=== PATIENT | female | born 1950 | race Caucasian/White ===

== ENCOUNTER 2016-10-12 17:18 | Observation (INO) ==
--- NOTE | 2016-10-12 18:16 | Emergency Department Note ---
Disposition Clinical Impression: Chest pain Qualifiers: Chest pain type: unspecified Qualified Code(s): R07.9 - Chest pain, unspecified Disposition: Admitted As Inpatient Condition: Fair Time of Disposition: 21:00 General Adult HPI - General Chief complaint: ED Chest Pain Stated complaint: Chest Pressure Time Seen by Provider: 10/12/16 18:07 Source: patient, family Limitations: no limitations - History of Present Illness Pain Scale: 3 - Related Data Home Medications Medication Instructions Recorded Confirmed Aspirin Enteric Coated [Aspirin EC] 81 mg PO DAILY 10/12/16 10/12/16 Cholecalciferol (Vitamin D3) 2,000 unit PO DAILY 10/12/16 10/12/16 [Vitamin D] Cranberry 500 mg PO DAILY 10/12/16 10/12/16 Cyanocobalamin (Vitamin B-12) 1,000 mcg PO DAILY 10/12/16 10/12/16 [Vitamin B12] Docusate [Colace] 100 mg PO DAILY PRN 10/12/16 10/12/16 GlipiZIDE [Glipizide Xl] 5 mg PO DAILY 10/12/16 10/12/16 Krill/Om3/Dha/Epa/Om6/Lip/Astx 2 each PO DAILY 10/12/16 10/12/16 [Krill Oil 1,500 mg Softgel] Lisinopril [Zestril] 5 mg PO DAILY 10/12/16 10/12/16 Loratadine [Claritin] 10 mg PO DAILY 10/12/16 10/12/16 Metformin [Glucophage] 500 mg PO BIDWM 10/12/16 10/12/16 Oxaprozin [Daypro] 600 mg PO BID 10/12/16 10/12/16 Psyllium Husk [Metamucil] 0.52 gm PO BID 10/12/16 10/12/16 Triamterene/HCTZ 37.5/25mg 1 each PO DAILY 10/12/16 10/12/16 [Dyazide] Vitamin E (Dl,Tocopheryl Acet) 400 unit PO DAILY 10/12/16 10/12/16 [Vitamin E] Allergies Allergy/AdvReac Type Severity Reaction Status Date / Time Penicillins [PCN] Allergy Swelling Verified 10/12/16 17:28 of Lip/Tongue/Throat Sulfa (Sulfonamide Allergy Rash Verified 10/12/16 17:28 Antibiotics) Past Medical History - Past Medical History Medical history: Reports: diabetes, hypertension Psychiatric history: Reports: no psych history - Social History Smoking Status: Never smoker Smokeless Tobacco Status: No Alcohol use: Reports: none Drug use: Reports: none Physical Exam - General Limitations: no limitations General appearance: alert, in no apparent distress Course Course Narrative: Patient signed out to me at 7 PM. Chest pain intermittent over the last 2 weeks. Patient has never had any stress testing or heart catheterization. Patient feeling intermittent episodes of heart racing and chest pressure as well. Recently changed from atenolol to lisinopril. Apparently an echocardiogram had been done about Keri a few weeks back which showed mitral valve prolapse. We will admit for chest pain, rule out ACS. I think the patient will benefit from some cardiac monitoring to see if she is intermittently going into tachyarrhythmia. I spoke with hospitalist Dr. Gongora who has accepted patient for admission. Vital Signs Temperature 98.7 F 10/12/16 17:21 Pulse Rate 54 10/12/16 17:21 Respiratory Rate 18 10/12/16 17:21 Blood Pressure 161/78 10/12/16 17:21 O2 Sat by Pulse Oximetry 96 10/12/16 17:21 Temperature 98.7 F 10/12/16 17:21 Pulse Rate 46 10/12/16 19:39 Respiratory Rate 16 10/12/16 19:39 Blood Pressure 131/76 10/12/16 19:39 O2 Sat by Pulse Oximetry 99 10/12/16 19:39 Oxygen Delivery Oxygen Delivery Room Air Medical Decision Making - Lab Data Result diagrams: 10/12/16 18:26 10/12/16 18:26 Lab Results 10/12/16 10/12/16 10/12/16 Range/Units 18:26 18:26 18:26 WBC 5.9 (4.3-11.1) K/mcL RBC 4.63 (3.82-4.97) M/mcL Hgb 13.5 (11.5-15.4) g/dL Hct 40.8 (35.3-44.9) % MCV 88.1 (83.0-100.0) fL MCH 29.2 (28.0-33.3) pg MCHC 33.1 (31.6-35.5) g/dL RDW 14.0 (11.5-14.5) % Plt Count 271 (140-400) K/mcL MPV 11.2 (9.4-12.4) fL Immature Gran % 0.3 (0-4) % Seg Neutrophils % 39.9 % Lymphocytes % 38.7 % Monocytes % 14.3 % Eosinophils % 5.6 % Basophils % 1.2 % Neutrophils # 2.3 (1.6-8.9) K/mcL Lymphocytes # 2.3 (0.6-4.6) K/mcL Monocytes # 0.8 (0.0-1.3) K/mcL Eosinophils # 0.3 (0.0-0.6) K/mcL Basophils # 0.1 (0.0-0.2) K/mcL PT 11.7 (9.4-12.1) Seconds INR 1.1 APTT 24.5 L (26.0-36.0) Seconds Sodium 137 (136-145) mEq/L Potassium 4.2 (3.5-4.5) mEq/L Chloride 106 (98-109) mEq/L Carbon Dioxide 19 (19-29) mEq/L BUN 29 H (7-20) mg/dL Creatinine 1.01 (0.57-1.11) mg/dL Est GFR ( Amer) > 60 (> 60) Est GFR (Non-Af Amer) 55 L (> 60) BUN/Creatinine Ratio 29 H (6-26) Glucose 96 (70-99) mg/dL Calculated Osmolality 290 (280-300) Calcium 9.7 (8.6-10.8) mg/dL Magnesium 1.7 (1.6-2.6) mg/dL Troponin I (0-0.03) ng/mL TSH 2.000 (0.350-4.840) mcIU/mL 10/12/16 Range/Units 18:26 WBC (4.3-11.1) K/mcL RBC (3.82-4.97) M/mcL Hgb (11.5-15.4) g/dL Hct (35.3-44.9) % MCV (83.0-100.0) fL MCH (28.0-33.3) pg MCHC (31.6-35.5) g/dL RDW (11.5-14.5) % Plt Count (140-400) K/mcL MPV (9.4-12.4) fL Immature Gran % (0-4) % Seg Neutrophils % % Lymphocytes % % Monocytes % % Eosinophils % % Basophils % % Neutrophils # (1.6-8.9) K/mcL Lymphocytes # (0.6-4.6) K/mcL Monocytes # (0.0-1.3) K/mcL Eosinophils # (0.0-0.6) K/mcL Basophils # (0.0-0.2) K/mcL PT (9.4-12.1) Seconds INR APTT (26.0-36.0) Seconds Sodium (136-145) mEq/L Potassium (3.5-4.5) mEq/L Chloride (98-109) mEq/L Carbon Dioxide (19-29) mEq/L BUN (7-20) mg/dL Creatinine (0.57-1.11) mg/dL Est GFR ( Amer) (> 60) Est GFR (Non-Af Amer) (> 60) BUN/Creatinine Ratio (6-26) Glucose (70-99) mg/dL Calculated Osmolality (280-300) Calcium (8.6-10.8) mg/dL Magnesium (1.6-2.6) mg/dL Troponin I 0.01 (0-0.03) ng/mL TSH (0.350-4.840) mcIU/mL Attestation Statement - Attestation Attestation: I examined this patient and my medical decision-making was reviewed with the RENEWABLE ENERGY PROJECT MANAGER/PA/Advanced Practice Nurse/Resident Physician. I agree with the documented findings, disposition and treatment plan as described except to the extent set forth below. [id number] time provided Patient presents with chest pain. She is pain-free at the time of my exam. She appears in no acute distress. No known previous history of coronary artery disease I, Robe Dowd MD, personally performed a history and physical exam of the patient and discussed their management with the resident. I reviewed the resident's note and agree with the documented findings, medical decision making , and plan of care. This patient was signed out at shift change from Dr. Landry. Please refer to his note for complete details of the history and physical examination. At shift change the patient is awaiting test results before consult the hospitalist for admission. Patient has had some intermittent chest discomfort over the past 2 weeks associated with fatigue and weakness. No chest pain at present. On examination patient is a well-developed well-nourished well-appearing elderly female in no acute distress. She is alert and oriented 3. There is no cyanosis or diaphoresis. Chest is nontender to palpation. Breath sounds are clear and equal bilaterally. Heart regular rate and rhythm. Abdomen soft and nontender with normal bowel sounds. No pedal edema. The hospitalist, Dr. Gongora, was consulted and accepted admission of the patient.
--- NOTE | 2016-10-12 18:20 | Emergency Department Note ---
Disposition Clinical Impression: Chest pain Disposition: Admitted As Inpatient Condition: Good Chest Pain HPI - General Chief Complaint: ED Chest Pain Stated Complaint: Chest Pressure Time Seen by Provider: 10/12/16 18:07 Source: patient, family Mode of arrival: ambulatory Limitations: no limitations Vital Signs Reviewed: Yes Nursing Notes Reviewed: Yes - History of Present Illness HPI Narrative: Patient presents with intermittent chest discomfort over the past several weeks. She was previously admitted to [facility] overnight for observation and subsequently discharged. She has also seen her primary care physician yesterday who changed her antihypertensive medications (atenolol to lisinopril). Pt complaint: chest pain Onset (ago): week(s) Duration: intermittent Onset: during rest Pain Location: substernal Severity: moderate Severity scale (1-10): 3 Quality: other (pressure) Improves with: nothing Worsens with: nothing Associated symptoms: Reports: palpitations, other (Weakness and fatigue) Treatments prior to arrival chest pain: aspirin - Related Data On Oral Contraceptives: No Home Medications Medication Instructions Recorded Confirmed Aspirin Enteric Coated [Aspirin EC] 81 mg PO DAILY 10/12/16 10/12/16 Cholecalciferol (Vitamin D3) 2,000 unit PO DAILY 10/12/16 10/12/16 [Vitamin D3] Cranberry 500 mg PO DAILY 10/12/16 10/12/16 Cyanocobalamin (Vitamin B-12) 1,000 mcg PO DAILY 10/12/16 10/12/16 [Vitamin B12] Docusate [Colace] 100 mg PO DAILY PRN 10/12/16 10/12/16 GlipiZIDE [Glipizide Xl] 5 mg PO DAILY 10/12/16 10/12/16 Krill/Om3/Dha/Epa/Om6/Lip/Astx 2 each PO DAILY 10/12/16 10/12/16 [Krill Oil 1,500 mg Softgel] Loratadine [Claritin] 10 mg PO DAILY 10/12/16 10/12/16 Metformin [Glucophage] 500 mg PO BIDWM 10/12/16 10/12/16 Oxaprozin [Daypro] 600 mg PO BID 10/12/16 10/12/16 Psyllium Husk [Metamucil] 0.52 gm PO BID 10/12/16 10/12/16 Triamterene/HCTZ 37.5/25mg 1 each PO DAILY 10/12/16 10/12/16 [Dyazide] Vitamin E (Dl,Tocopheryl Acet) 400 unit PO DAILY 10/12/16 10/12/16 [Vitamin E] Previous Rx's Medication Instructions Recorded Enalapril Maleate [Vasotec] 2.5 mg PO DAILY #30 tablet 10/13/16 Lisinopril [Zestril] 10 mg PO DAILY #30 tablet 10/13/16 Allergies Allergy/AdvReac Type Severity Reaction Status Date / Time Penicillins [PCN] Allergy Swelling Verified 10/12/16 17:28 of Lip/Tongue/Throat Sulfa (Sulfonamide Allergy Rash Verified 10/12/16 17:28 Antibiotics) All systems ED: reviewed and negative except as stated. Constitutional: Reports: weakness Eyes: Reports: as per HPI ENT ED: Reports: as per HPI Cardiovascular: Reports: chest pain, palpitations Respiratory: Reports: as per HPI Gastrointestinal: Reports: as per HPI Genitourinary: Reports: as per HPI Musculoskeletal: Reports: as per HPI Integumentary: Reports: as per HPI Neurological: Reports: as per HPI Psychiatric: Reports: as per HPI Endocrine: Reports: as per HPI Hematological/Lymphatic: Reports: as per HPI Allergic/Immunologic: Reports: as per HPI Chest Pain PMH - Past Medical History Medical history: Reports: diabetes, hypertension, other Surgical history: Reports: hysterectomy Psychiatric history: Reports: no psych history - Social History Smoking Status: Never smoker Alcohol use: Reports: none Drug use: Reports: none Physical Exam - General Limitations: no limitations General appearance: alert, in no apparent distress - Head Head exam: atraumatic - Eye Eye exam: Present: normal appearance - ENT ENT exam: normal exam - Neck Neck exam: Present: normal inspection - Chest Chest inspection: Present: normal inspection, symmetric chest wall rise - Respiratory Respiratory exam: Present: normal lung sounds bilaterally - Cardiovascular Cardiovascular exam: Present: normal rhythm, bradycardia, normal heart sounds - Abdominal Exam Abdominal exam: Present: soft, Non-Tender - Rectal Exam Rectal exam: Present: deferred - Extremities Exam Extremities exam: Present: normal inspection - Neurological Exam Neurological exam: Present: alert, oriented X3, CN II-XII intact - Psychiatric Psychiatric exam: Present: normal affect, normal mood - Skin Skin exam: Present: warm, dry, intact Course Course Narrative: Patient presents to the emergency department with generalized weakness, intermittent nonexertional chest discomfort. Her risk factors for coronary artery disease are diabetes, hypertension, age. She appears in no acute distress on exam. EKG shows sinus bradycardia and a prolonged QT. I will attempt to obtain previous records from outside facility. Evaluation initiated. Care will be endorsed to the oncoming physician Dr. Dowd at 7 PM pending completion of evaluation Vital Signs Temperature 98.7 F 10/12/16 17:21 Pulse Rate 54 10/12/16 17:21 Respiratory Rate 18 10/12/16 17:21 Blood Pressure 161/78 10/12/16 17:21 O2 Sat by Pulse Oximetry 96 10/12/16 17:21 Temperature 97.9 F 10/13/16 19:13 Pulse Rate 60 10/13/16 19:13 Respiratory Rate 14 10/13/16 19:13 Blood Pressure 145/82 10/13/16 19:13 O2 Sat by Pulse Oximetry 94 L 10/13/16 19:13 Oxygen Delivery Oxygen Delivery Room Air Chest Pain - Lab Data Result diagrams: 10/13/16 00:32 10/13/16 00:32 Lab Results 10/12/16 10/12/16 10/12/16 Range/Units 18:26 18:26 18:26 WBC 5.9 (4.3-11.1) K/mcL RBC 4.63 (3.82-4.97) M/mcL Hgb 13.5 (11.5-15.4) g/dL Hct 40.8 (35.3-44.9) % MCV 88.1 (83.0-100.0) fL MCH 29.2 (28.0-33.3) pg MCHC 33.1 (31.6-35.5) g/dL RDW 14.0 (11.5-14.5) % Plt Count 271 (140-400) K/mcL MPV 11.2 (9.4-12.4) fL Immature Gran % 0.3 (0-4) % Seg Neutrophils % 39.9 % Lymphocytes % 38.7 % Monocytes % 14.3 % Eosinophils % 5.6 % Basophils % 1.2 % Neutrophils # 2.3 (1.6-8.9) K/mcL Lymphocytes # 2.3 (0.6-4.6) K/mcL Monocytes # 0.8 (0.0-1.3) K/mcL Eosinophils # 0.3 (0.0-0.6) K/mcL Basophils # 0.1 (0.0-0.2) K/mcL PT 11.7 (9.4-12.1) Seconds INR 1.1 APTT 24.5 L (26.0-36.0) Seconds Sodium 137 (136-145) mEq/L Potassium 4.2 (3.5-4.5) mEq/L Chloride 106 (98-109) mEq/L Carbon Dioxide 19 (19-29) mEq/L BUN 29 H (7-20) mg/dL Creatinine 1.01 (0.57-1.11) mg/dL Est GFR ( Amer) > 60 (> 60) Est GFR (Non-Af Amer) 55 L (> 60) BUN/Creatinine Ratio 29 H (6-26) Glucose 96 (70-99) mg/dL Calculated Osmolality 290 (280-300) Calcium 9.7 (8.6-10.8) mg/dL Magnesium 1.7 (1.6-2.6) mg/dL Troponin I (0-0.03) ng/mL TSH 2.000 (0.350-4.840) mcIU/mL 10/12/16 Range/Units 18:26 WBC (4.3-11.1) K/mcL RBC (3.82-4.97) M/mcL Hgb (11.5-15.4) g/dL Hct (35.3-44.9) % MCV (83.0-100.0) fL MCH (28.0-33.3) pg MCHC (31.6-35.5) g/dL RDW (11.5-14.5) % Plt Count (140-400) K/mcL MPV (9.4-12.4) fL Immature Gran % (0-4) % Seg Neutrophils % % Lymphocytes % % Monocytes % % Eosinophils % % Basophils % % Neutrophils # (1.6-8.9) K/mcL Lymphocytes # (0.6-4.6) K/mcL Monocytes # (0.0-1.3) K/mcL Eosinophils # (0.0-0.6) K/mcL Basophils # (0.0-0.2) K/mcL PT (9.4-12.1) Seconds INR APTT (26.0-36.0) Seconds Sodium (136-145) mEq/L Potassium (3.5-4.5) mEq/L Chloride (98-109) mEq/L Carbon Dioxide (19-29) mEq/L BUN (7-20) mg/dL Creatinine (0.57-1.11) mg/dL Est GFR ( Amer) (> 60) Est GFR (Non-Af Amer) (> 60) BUN/Creatinine Ratio (6-26) Glucose (70-99) mg/dL Calculated Osmolality (280-300) Calcium (8.6-10.8) mg/dL Magnesium (1.6-2.6) mg/dL Troponin I 0.01 (0-0.03) ng/mL TSH (0.350-4.840) mcIU/mL - EKG Data EKG attestation: Yes I reviewed and interpreted this EKG. EKG results narrative: Sinus bradycardia rate 49 LVH prolonged QT NV 175 QRS 90 QT/QTc 506/476
[2016-10-12 18:34] LABS: Basophils # 0.1 K/mcL (0.0-0.2); Basophils % 1.2 %; Eosinophils # 0.3 K/mcL (0.0-0.6); Eosinophils % 5.6 %; Hematocrit 40.8 % (35.3-44.9); Hemoglobin 13.5 g/dL (11.5-15.4); Immature Granulocytes % 0.3 % (0-4); Lymphocytes # 2.3 K/mcL (0.6-4.6); Lymphocytes % 38.7 %; Mean Corpuscular HGB Conc 33.1 g/dL (31.6-35.5); Mean Corpuscular Hemoglobin 29.2 pg (28.0-33.3); Mean Corpuscular Volume 88.1 fL (83.0-100.0); Mean Platelet Volume 11.2 fL (9.4-12.4); Monocytes # 0.8 K/mcL (0.0-1.3); Monocytes % 14.3 %; Neutrophils # 2.3 K/mcL (1.6-8.9); Platelet Count 271 K/mcL (140-400); Red Blood Count 4.63 M/mcL (3.82-4.97); Segmented Neutrophils % 39.9 %
[2016-10-12 18:40] LABS: INR 1.1; Prothrombin Time 11.7 Seconds (9.4-12.1)
[2016-10-12 18:43] LABS: Activated Partial Thrombo Time 24.5 Seconds (26.0-36.0)
[2016-10-12 18:46] LABS: BUN/Creatinine Ratio 29 (6-26); Blood Urea Nitrogen 29 mg/dL (7-20); Calcium 9.7 mg/dL (8.6-10.8); Carbon Dioxide 19 mEq/L (19-29); Chloride 106 mEq/L (98-109); Glucose 96 mg/dL (70-99); Osmolality,Calculated 290 (280-300); Potassium 4.2 mEq/L (3.5-4.5); Sodium 137 mEq/L (136-145); eGFR For African Americans > 60 (> 60); eGFR For Non-African Americans 55 (> 60)
[2016-10-12 19:20] LABS: Magnesium 1.7 mg/dL (1.6-2.6)
[2016-10-12] MEDS ORDERED: Naloxone 0.4 MG/ML INJ IVP PRN (22:46)
[2016-10-12] MEDS ORDERED: Acetaminophen 325 MG TABLET PO PRN (22:46)
[2016-10-12] MEDS ORDERED: *HR* Promethazine 25 MG/ML VIAL IVP PRN (22:46)
[2016-10-12] MEDS ORDERED: 0.9 % Sodium Chloride 1,000 ML IVC SCH (23:00)
--- NOTE | 2016-10-12 23:10 | Internal Med History&Physical ---
<Briseida Fabian Margarita - Last Filed: 10/12/16 23:00> Date of Encounter: 10/12/16 Time of Encounter: 23:01 Assessment and Plan (1) Atypical chest pain Current visit: Yes Status: Acute unclear etiology BP 131/76 trop 0.01 TSH 2.0 electrolytes wnl CXR: cardiomegaly will trend troponins tele ECHO to evaluate valvular dysfunction, wall motion stress test to evaluate for CAD recommend holter monitor and cardiac follow up outpt npo at [facility] for am testing (2) Diabetes Current visit: Yes Status: Acute last glucose 96 npo at [facility] sliding scale coverage (3) HTN (hypertension) Current visit: Yes Status: Acute well controlled 131/76 will hold BB for stress test adrián Qualifiers: Hypertension type: essential hypertension Qualified Code(s): I10 - Essential (primary) hypertension (4) DVT prophylaxis Current visit: Yes Status: Acute SCDs heparin SQ (5) MVP (mitral valve prolapse) Current visit: Yes Status: Acute unlikely cause of symptoms will get ECHO to evaluate (6) Palpitations Current visit: Yes Status: Acute Internal Medicine - H&P: HPI Chief complaint: chest pain Admitted From: Home Plans for Post Hospital Care: Home History of present illness: Ms. Kay is a 66 year old femalec/o chest pain with palpitations. PMHx of MVP, HTN, DM presents with c/o chest pressure with palpitations intermittently for about 1.5 weeks. Pt states that chest pressure and racing heart beats will come on, usually in the evening when she is getting ready to go to sleep, will last a few seconds to several minutes and are usually improved with taking 1/2 of an atenolol. She states pressure is localized to substernal area does not radiate. She recently changed medications from atenolol to lisinopril. She she feels has made her racing heart beats worse. Pt states symptoms are not made worse with activity and not improved with rest. They either improved with taking her atenolol or resolve on their own. Pt admits to recent fall about 2 weeks ago whiletaking out trash that was heavier then usual. Denies syncope, LOC, headache , change in vision, weakness, fatigue, SOB, diaphoresis, N/V, numbness/tingling. Past Med Surg Social Fam HX - Past Medical History Medical history: diabetes, hypertension, valvular heart disease (MVP) Psychiatric history: no psych history - Past Surgical History Surgical History: hysterectomy, other (b/l knee replacement) - Social History Smoking Status: Never smoker Smokeless Tobacco Status: No Alcohol use: none Drug use: none Internal Medicine - H&P: Meds Aspirin Enteric Coated [Aspirin EC] 81 mg PO DAILY 10/12/16 [History] Cholecalciferol (Vitamin D3) [Vitamin D] 2,000 unit PO DAILY 10/12/16 [History] Cranberry 500 mg PO DAILY 10/12/16 [History] Cyanocobalamin (Vitamin B-12) [Vitamin B12] 1,000 mcg PO DAILY 10/12/16 [History ] Docusate [Colace] 100 mg PO DAILY PRN 10/12/16 [History] GlipiZIDE [Glipizide Xl] 5 mg PO DAILY 10/12/16 [History] Krill/Om3/Dha/Epa/Om6/Lip/Astx [Krill Oil 1,500 mg Softgel] 2 each PO DAILY [History] Lisinopril [Zestril] 5 mg PO DAILY 10/12/16 [History] Loratadine [Claritin] 10 mg PO DAILY 10/12/16 [History] Metformin [Glucophage] 500 mg PO BIDWM 10/12/16 [History] Oxaprozin [Daypro] 600 mg PO BID 10/12/16 [History] Psyllium Husk [Metamucil] 0.52 gm PO BID 10/12/16 [History] Triamterene/HCTZ 37.5/25mg [Dyazide] 1 each PO DAILY 10/12/16 [History] Vitamin E (Dl,Tocopheryl Acet) [Vitamin E] 400 unit PO DAILY 10/12/16 [History] Allergies Penicillins [PCN] Allergy (Verified 10/12/16 17:28) Swelling of Lip/Tongue/Throat Sulfa (Sulfonamide Antibiotics) Allergy (Verified 10/12/16 17:28) Rash All Systems PM: A 10-system review of systems was performed and is negative for pertinent findings except as documented above in the HPI. - Constitutional Constitutional: falls, no chills, no fever(s), no night sweats, no weakness - EENT Eyes: no change in vision, no discharge, no pain, no photophobia - Cardiovascular Cardiovascular ROS IM: chest pain, irregular heart rhythm, palpitations, no diaphoresis, no dyspnea, no dyspnea on exertion, no edema, no lightheadedness, no syncope - Respiratory Respiratory: no cough, no dyspnea, no wheezing, no excessive phlegm production - Gastrointestinal Gastrointestinal: no abdominal pain, no diarrhea, no hematemesis, no hematochezia, no melena, no nausea, no vomiting - Genitourinary Genitourinary: no change in urinary stream, no dysuria, no flank pain, no hematuria - Musculoskeletal Musculoskeletal ROS IM: no numbness, no tingling - Integumentary Integumentary IM: no rash, no unusual bruising - Neurological Neurological ROS: no confusion, no convulsions, no focal weakness, no numbness, no tingling, no tremor(s) - Constitutional Vitals: Temp Pulse Resp BP Pulse Ox 98.7 F 48 16 131/76 95 10/12/16 17:21 10/12/16 21:50 10/12/16 22:00 10/12/16 22:00 10/12/16 21:50 General appearance: Present: A&O X 3, pleasant, no acute distress, answers questions appropriately - Head Head exam: Present: atraumatic, normocephalic - Eye Eye exam: Present: PERRL, conjuntiva pink, sclera anicteric Pupils: Present: PERRL - Neck Neck exam general surgery: Present: supple, trachea midline. Absent: lymphadenopathy - Respiratory Respiratory exam: Present: CTAB. Absent: accessory muscle use, rales, rhonchi, wheezes - Cardiovascular Cardiovascular exam: Present: RRR, +S1, +S2. Absent: diastolic murmur, gallop, rubs, systolic murmur - GI/Abdominal GI/Abdominal exam: Present: normal bowel sounds, soft, no peritoneal signs. Absent: distended, tenderness - Extremities Exam Extremities exam: Present: pedal edema (trace b/l), radial pulses palpable and symetrical. Absent: calf tenderness, cyanotic - Neurological Exam Neurological exam: Present: CN II-XII intact, oriented X3, no focal deficits. Absent: pronater drift, facial droop, speech deficit Internal Med - H&P Results - Labs CBC & Chem 7: 10/12/16 18:26 10/12/16 18:26 <Solomon Mcdermott - Last Filed: 10/13/16 00:49> Date of Encounter: 10/12/16 Internal Medicine - H&P: HPI History of present illness: Ms. Kay is a 66 year old female All Systems PM: A 10-system review of systems was performed and is negative for pertinent findings except as documented above in the HPI. - Constitutional Vitals: Temp Pulse Resp BP Pulse Ox 97.9 F 50 15 132/67 96 10/12/16 23:19 10/12/16 23:19 10/12/16 23:19 10/12/16 23:19 10/12/16 23:19 Internal Med - H&P Results - Labs CBC & Chem 7: 10/13/16 00:32 10/12/16 18:26 Labs: Short CBC 10/13/16 Range/Units 00:32 WBC 7.2 (4.3-11.1) K/mcL Hgb 13.1 (11.5-15.4) g/dL Hct 38.5 (35.3-44.9) % Plt Count 246 (140-400) K/mcL - Attending Attestation I examined this patient and my medical decision-making was reviewed with the ACTING MANAGER/PA/Advanced Practice Nurse/Resident Physician. I agree with the documented findings, disposition and treatment plan as described except to the extent set forth below. The patient was seen and examined by me independently. Patient admitted with chest pain, will follow trend of troponins. Stress test. desk monitor. Agree with Dr. Fabian.
[2016-10-12] MEDS ORDERED: *HR* Dextrose 50 % in Water (Syg) 50 ML SYRINGE IVP PRN (23:13)
[2016-10-12] MEDS ORDERED: Dextrose Gel 15 GM PO PRN ×2 (23:13)
[2016-10-12] MEDS ORDERED: D5% in Water 1,000 ML IVC PRN (23:13)
[2016-10-13 00:46] LABS: Hematocrit 38.5 % (35.3-44.9); Hemoglobin 13.1 g/dL (11.5-15.4); Mean Corpuscular Hemoglobin 30.5 pg (28.0-33.3); Mean Corpuscular Volume 89.5 fL (83.0-100.0); Mean Platelet Volume 11.8 fL (9.4-12.4); Platelet Count 246 K/mcL (140-400); Red Cell Distribution Width 14.2 % (11.5-14.5)
[2016-10-13 01:01] LABS: Calcium 9.9 mg/dL (8.6-10.8); Chol/HDL Ratio 5.5 (0-4.9)
[2016-10-13] MEDS: Insulin LISPRO 300 UNITS/3 ML VIAL SQ SCH ×2 (01:11→05:45)
[2016-10-13] MEDS: *HR* Heparin 5,000 UNIT/ML VIAL SQ SCH ×2 (05:43→18:48)
[2016-10-13] MEDS ORDERED: Regadenoson 0.4 MG/5 ML SYRINGE IVP ONE (07:50)
--- NOTE | 2016-10-13 08:18 | Electrocardiograph Report ---
[place] [id number] Test Date: 2016-10-12 Pat Name: Karli Kay Department: [id number] Room: 3B Gender: F Production Supervisor Off Shift: : 1950 Requested By: Eleazar Landry Order Number: [id number] Reading MD: Donal Montes MD Measurements Intervals [place] Rate: 49 P: 54 [place]: 175 QRS: 1 QRSD: 90 T: 17 QT: 506 QTc: 476 Interpretive Statements SINUS BRADYCARDIA MODERATE VOLTAGE CRITERIA FOR LVH BASELINE ARTIFACT PROLONGED QT INTERVAL Electronically Signed On 10-13-2016 8:17:29 EDT by Donal Montes MD
[2016-10-13] MEDS ORDERED: Pantoprazole 40 MG VIAL IVP SCH (09:00)
--- NOTE | 2016-10-13 10:30 | ECHO - Doppler Report ---
Echocardiogram Name: Karli Kay Date of Study: 10/13/2016 Date: 1950 Ht: 65.0 in Medical Record#: [id number] Age: 66 Wt: 219.0 lb Gender: Female BSA: 2.06 Order #: [id number] Location: [facility] Room #: [id number] Reading Physician: Julian Frye MD, [facility] Packaging Designer: Melany Delcid Ordering Physician: Briseida Fabian DO Primary Physician: Cher Ceja CNP Indications: Chest pressure w/ palpitations Impressions: Marked sinus bradycardia. Heart rate was in the 40's throughout this study. Normal LV systolic function, LVEF 60-65%. Mild left ventricular diastolic dysfunction. Normal right ventricular size and function. Mildly dilated left atrium. Mild aortic regurgitation. Unable to estimate RVSP due to lack of TR jet. Left Ventricular Wall Motion: Rest Echo Findings All wall segments showed normal motion. Findings: Study Quality * Suboptimal echo windows. ECG Findings * Marked sinus bradycardia. Heart rate was in the 40's throughout this study. Left Ventricle * Normal LV systolic function, LVEF 60-65%. * Normal LV chamber size and wall thickness. * Mild left ventricular diastolic dysfunction. Right Ventricle * Normal right ventricular size and function. Left Atrium * Mildly dilated left atrium. Right Atrium * Normal right atrial size. Aorta * Normally sized aortic root. Pericardium * There is no pericardial effusion present. IVC * The IVC is not well evaluated. Aortic Valve * Aortic valve not well visualized. * No aortic stenosis. * Mild aortic regurgitation. Mitral Valve * Mild mitral annular calcification * No mitral stenosis. * Trace mitral regurgitation. Tricuspid Valve * Normal tricuspid valve structure. * No tricuspid stenosis. * Trace tricuspid regurgitation. * Unable to estimate RVSP due to lack of TR jet. Pulmonic Valve * Pulmonic valve not well visualized. * No pulmonic stenosis. * No pulmonic regurgitation. History Hypertension Diabetes Family History of CAD Measurements: BP: 130/ 65 2D Normal Values RVIDd: 3.60 cm IVSd: 1.00 cm 0.6 - 1.0 cm LVIDd: 5.40 cm 3.7 - 5.6 cm LVPWd: 1.00 cm 0.6 - 1.1 cm LVIDs: 3.80 cm 1.5 - 3.6 cm AO: 2.90 cm < 4.0 cm LA volume: 70 Mitral Valve Peak E:.53 m/sec Peak A:.76 m/sec E/A Ratio:0.7 Peak E' Lat Rito:5.36 cm/s Peak E' Med Rito:3.51 cm/s E/E' Lat Ratio:9.9 E/E' Med Ratio:15 Updated by Julian Frye MD, [facility] on 10/13/2016 10:25:22 AM electronically signed on 10/13/2016 10:25:48 AM with status of Final Wall Motion Monahan: 1=Normal, 2=Hypokinesis, 3=Akinesis, 4=Dyskinesis, 5=Aneurysmal, 6=Hyperkinetic, X=Not Visualized (Blank)=Missing
--- NOTE | 2016-10-13 11:17 | Nuclear Medicine Stress Report ---
Regadenoson Nuclear Stress Name: Karli Kay Date of Study: 10/13/2016 Date: 1950 Ht: 65.0 in Medical Record#: [id number] Age: 66 Wt: 219.0 lb Gender: Female Order #: [id number] Location: [facility] Room: [facility] Supervising Provider: Constance James CNP Reading Physician: Julian Frye MD, [facility] Ordering Physician: Susan Moore CNP Primary Care Physician: Cher Ceja CNP Stress Technologist: Arsalan Vasquez, CAN REFORMING MACHINE OPERATOR, CCT Supervisor Weaving: Pavan Salas Indications: Chest Pain, Palpitations Impression: Resting ECG demonstrated marked sinus bradycardia (HR 45 bpm). No significant ECG changes with regadenoson. Gated LVEF = 68%. Perfusion imaging was negative for ischemia or infarct. History: Hypertension Diabetes Hypercholesteremia Stress Test Summary: Stress Test Type: Pharmacologic Regadenoson 0.4mg/5ml given IV Baseline Information: Initial Heart Rate: 45 Blood Pressure: 136/78 Stress Information: Test Terminated Due to (primary): Completed Protocol Maximum Blood Pressure: 140/80 Maximum Heart Rate: 70 Percent Maximum Heart Rate Achieved: 46 Double Product: 9800 Symptoms: Chest pressure, [place] warm Nuclear Summary: SPECT myocardial perfusion imaging using Tc99m Sestamibi given intravenously was performed at rest and following cardiac stress testing. The resting images were obtained following initial dose of 8.9 mCi. Following stress an additional dose of 28.6 mCi was given at peak exercise or 30 seconds post regadenoson infusion. Findings: Stress Note * Resting ECG demonstrated marked sinus bradycardia (HR 45 bpm). * No baseline arrhythmias were noted. * Patient reported chest pressure with regadenoson. This is a non-specific finding. * No arrhythmias were noted during stress. * No significant ECG changes with regadenoson. Hemodynamic responses * Normal hemodynamic responses to pharmacologic stress. Study Quality * Study quality is average. Gated EF % * Gated LVEF = 68%. Left Ventricle * The left ventricle is not dilated. * Normal Segmental Perfusion in rest. * Normal segmental perfusion in stress. * Breast attenuation artifact is present. TID * No evidence of transient ischemic dilatation. Updated by Julian Frye MD, [facility] on 10/13/2016 11:12:02 AM electronically signed on 10/13/2016 11:12:26 AM with status of Final
--- NOTE | 2016-10-13 18:28 | Discharge Summary ---
Date of Encounter: 10/12/16 Time of Encounter: 12:10 - Discharge Diagnosis (1) Chest pain Priority: Primary Status: Acute Comments: Patient relates three-week history of midsternal chest pain, intermittent, and without radiation. She reports that sometimes she is short of breath. She denies nausea vomiting or diaphoresis. Patient states that she was changed from her beta michael to her BENJY inhibitor due to bradycardia. She says she stopped taking her lisinopril 2 days ago as well. She reports palpitations, or feeling like her heart "flip flops" at night, usually when she is trying to go to bed. She had an echo done at [facility] that showed mitral valve prolapse. Patient states that sometimes at night when she feels palpitations she will take half of atenolol which does relief the palpitations. Troponin negative 3, chest x-ray was negative for any acute cardiopulmonary process. Her stress test today showed gated LVEF of 60% and was negative for ischemia or infarct. Echo done today also shows marked sinus bradycardia with heart rate in the 40s throughout. LVEF was 6065% with normal systolic function , this one shows mild aortic regurgitation. I did speak with cardiology and patient will follow-up with them in the office, they will make an appointment. Patient will not continue beta michael and will have a Holter monitor. Patient's apical rate was regular as was her radial rate. Her lungs are clear. Qualifiers: Chest pain type: unspecified Qualified Code(s): R07.9 - Chest pain, unspecified (2) Palpitations Priority: Secondary Status: Acute Comments: Plan as above. (3) Bradycardia Priority: Secondary Status: Acute Comments: Patient's rate has consistently been in the 40s throughout her visit and including during her echocardiogram. She is asymptomatic. Her pressure remains slightly hypertensive. She denies chest pain after testing today. Her beta michael stopped. She will wear a Holter monitor, and she will follow-up with cardiology in the office. They will make an appointment. (4) Diabetes Priority: Secondary Status: Chronic Comments: Blood sugars have been reasonably well-controlled character this visit. Continue home medications. Qualifiers: Diabetes mellitus type: type 2 Diabetes mellitus complication status: without complication Diabetes mellitus penitentiary insulin use: without penitentiary use Qualified Code(s): E11.9 - Type 2 diabetes mellitus without complications (5) HTN (hypertension) Priority: Secondary Status: Chronic Comments: Chronic. BB was stopped prior to visit. Well controlled Continue home medications. Qualifiers: Hypertension type: essential hypertension Qualified Code(s): I10 - Essential (primary) hypertension (6) DVT prophylaxis Priority: Secondary Status: Acute Comments: Heparin subcutaneous SCDs - Discharge Medications Prescriptions: Lisinopril [Zestril] 10 mg PO DAILY #30 tablet Home Medications: Aspirin Enteric Coated [Aspirin EC] 81 mg PO DAILY 10/12/16 [History] Cholecalciferol (Vitamin D3) [Vitamin D3] 2,000 unit PO DAILY 10/12/16 [History] Cranberry 500 mg PO DAILY 10/12/16 [History] Cyanocobalamin (Vitamin B-12) [Vitamin B12] 1,000 mcg PO DAILY 10/12/16 [History ] Docusate [Colace] 100 mg PO DAILY PRN 10/12/16 [History] GlipiZIDE [Glipizide Xl] 5 mg PO DAILY 10/12/16 [History] Krill/Om3/Dha/Epa/Om6/Lip/Astx [Krill Oil 1,500 mg Softgel] 2 each PO DAILY [History] Loratadine [Claritin] 10 mg PO DAILY 10/12/16 [History] Metformin [Glucophage] 500 mg PO BIDWM 10/12/16 [History] Oxaprozin [Daypro] 600 mg PO BID 10/12/16 [History] Psyllium Husk [Metamucil] 0.52 gm PO BID 10/12/16 [History] Triamterene/HCTZ 37.5/25mg [Dyazide] 1 each PO DAILY 10/12/16 [History] Vitamin E (Dl,Tocopheryl Acet) [Vitamin E] 400 unit PO DAILY 10/12/16 [History] Lisinopril [Zestril] 10 mg PO DAILY #30 tablet 10/13/16 [Rx] Allergies/Adverse Reactions: Allergies Penicillins [PCN] Allergy (Verified 10/12/16 17:28) Swelling of Lip/Tongue/Throat Sulfa (Sulfonamide Antibiotics) Allergy (Verified 10/12/16 17:28) Rash Procedures/tests Complete & Pending: Procedures Performed prior 72 hours Category Date Time Status NM oswald perf SPECT multi [NM] Routine Exams 10/13/16 07:40 Taken EV echocardiogram Routine Y 10/13/16 22:55 Completed SP pharm nuclear stress Routine Y 10/13/16 07:39 Completed Date of admission: 10/12/16 20:18 Primary care physician: Cher Ceja CNP Discharging clinician: Susan Moore Anticipated date of discharge: 10/13/16 - Patient Status Disposition: Home, Self-Care Condition: Good Functional capacity at discharge: independent ambulation Overall status at discharge: patient is back to baseline - Ambulatory Orders Ambulatory Orders: ECG holter monitor [ECG] Time Frame: 3 Days, Facility: [facility], Location: Cardiopulmonary Svc - Discharge Instructions Follow Up With: Cher Ceja CNP [Primary Care Provider] - 10/24/16 8:00 am Additional Instructions: Please get your holter monitor in the next 2-3 days. Please resume your normal home medications, without the beta michael. Return to the ED for any other problems or concerns, if your pain returns, or if you have any other concerning symptoms. - Diet and Activity Activity: resume usual activities as tolerated Diet: advance to your usual diet Interval History: Patient reports approximately 3 week history of midsternal chest pain without radiation, shortness of breath. She denies nausea vomiting or diaphoresis. She reports bradycardia with rate in the 40s while being hypertensive at home. She says that she feels palpitations of her heart flip flops at night when she tries to read. That is what prompted her to come to the emergency department patient's blood pressure was only slightly elevated at admission and has been well controlled since then. She does remain bradycardic rate in the 40s. She had a stress test and an echo today both were negative. Echo did show some aortic regurgitation. Patient had been taking a beta michael and it was stopped about 3 weeks ago, however she does continue to take half of an atenolol when she feels her heart racing at nighttime, which does resolve the problem. She was switched to lisinopril, which she also stopped taking 2 days ago because she believes it was causing her chest pain. Chest x-ray was negative. Troponins were negative 3. She is stable for discharge. I will order a Holter monitor to be read by cardiology, with whom she will follow up in the next week or 2. They are making an appointment for her. Hospital course: Ms. Rahul is a 66 year old female - Time Spent with Patient Total time spent providing and/or coordinating discharge services: - Constitutional Vitals: Temp Pulse Resp BP Pulse Ox 98.0 F 51 14 112/64 94 L 10/13/16 15:01 10/13/16 15:01 10/13/16 15:01 10/13/16 15:01 10/13/16 15:01 General appearance: Present: A&O X 3, pleasant, no acute distress, answers questions appropriately - Head Head exam: Present: normal inspection - Eye Eye exam: Present: normal appearance, conjuntiva pink - ENT ENT exam: Present: mucous membranes moist, normal exam - Neck Neck exam general surgery: Present: normal inspection. Absent: lymphadenopathy , tenderness - Respiratory Respiratory exam: Present: CTAB. Absent: chest wall tenderness, respiratory distress, rhonchi, stridor, wheezes, tachypnea - Cardiovascular Cardiovascular exam: Present: bradycardia, RRR, +S1, +S2. Absent: diastolic murmur, systolic murmur, tachycardia - GI/Abdominal GI/Abdominal exam: Present: hepatomegaly, normal bowel sounds, soft. Absent: tenderness - Extremities Exam Extremities exam: Present: normal capillary refill, normal inspection, warm, radial pulses palpable and symetrical. Absent: pedal edema, tenderness - VTE Documentation of Mechanical Device: Graduated compression elastic hosiery
[2016-10-13 19:16] VITALS: BP 145/82
== END 2016-10-13 19:45 | disposition home or self-care (01) ==
LOC: 3BNU 17:18 → EMEROO 17:18 → 3BNU 22:01
PROVIDERS: ADMIT Registered Nurse; ATTEND Registered Nurse

== ENCOUNTER 2021-07-07 13:06 | Inpatient (IN) ==
[2021-07-07] MEDS ORDERED: Ondansetron 4 MG/2 ML VIAL IVP PRN (15:57)
[2021-07-07] MEDS ORDERED: MOM Conc 10 ML UD.LIQ PO PRN (15:57)
[2021-07-07] MEDS ORDERED: Naloxone 0.4 MG/ML INJ IVP PRN (15:57)
[2021-07-07] MEDS ORDERED: Remdesivir 200 MG in 0.9 % Sodium Chloride 100 ML IVPB ONE (16:01)
[2021-07-07] MEDS ORDERED: D5% in Water 1,000 ML IVC PRN (16:43)
[2021-07-07] MEDS ORDERED: *HR* Dextrose 50 % in Water (Syg) 50 ML SYRINGE IVP PRN (16:43)
[2021-07-07] MEDS ORDERED: Dextrose Gel 15 GM/37.5 ML TUBE PO PRN ×2 (16:43)
[2021-07-07] MEDS: Apixaban 5 MG TABLET PO SCH (20:01)
[2021-07-07] MEDS: Melatonin 3 MG TABLET PO PRN (20:01)
[2021-07-07] MEDS ORDERED: Metoprolol XL (24 HR) Succ 25 MG TAB.ER.24H PO SCH (21:00)
[2021-07-08 01:37] LABS: Basophils % 0.3 %; Hematocrit 38.6 % (35.3-44.9); Hemoglobin 12.9 g/dL (11.5-15.4); Immature Granulocytes % 0.9 % (0-4); Lymphocytes # 0.6 K/mcL (0.6-4.6); Lymphocytes % 7.4 %; Mean Corpuscular HGB Conc 33.4 g/dL (31.6-35.5); Mean Corpuscular Hemoglobin 29.7 pg (28.0-33.3); Mean Corpuscular Volume 88.9 fL (83.0-100.0); Mean Platelet Volume 11.4 fL (9.4-12.4); Monocytes # 0.4 K/mcL (0.0-1.3); Monocytes % 5.1 %; Neutrophils # 7.5 K/mcL (1.6-8.9); Platelet Count 296 K/mcL (140-400); Red Blood Count 4.34 M/mcL (3.82-4.97); Red Cell Distribution Width 12.9 % (11.5-14.5); Segmented Neutrophils % 86.3 %; White Blood Count 8.7 K/mcL (4.3-11.1)
[2021-07-08 01:44] LABS: Albumin 3.3 g/dL (3.5-5.7); Albumin/Globulin Ratio 1.1 (1.1-2.2); Bilirubin,Direct 0.2 mg/dL (0.0-0.2); Bilirubin,Indirect 0.4 mg/dL (0.0-1.0); Bilirubin,Total 0.6 mg/dL (0.3-1.0); Calcium 8.6 mg/dL (8.6-10.3); Globulin 2.9 g/dL (2.4-3.5); Magnesium 1.8 mg/dL (1.6-2.6); Phosphorous 4.3 mg/dL (2.7-4.5); Potassium 3.5 mEq/L (3.5-5.1); Total Protein 6.2 g/dL (6.4-8.9)
[2021-07-08 03:46] LABS: Platelet Estimate Normal (Normal); Reactive Lymphocytes Present (Not Present)
[2021-07-08] MEDS: Metoprolol XL (24 HR) Succ 25 MG TAB.ER.24H PO SCH ×2 (08:24→20:04)
[2021-07-08] MEDS: Apixaban 5 MG TABLET PO SCH ×2 (08:24→20:03)
[2021-07-08] MEDS: Insulin LISPRO 300 UNITS/3 ML VIAL SUBQ SCH ×3 (08:43→17:26)
[2021-07-08] MEDS: Remdesivir 100 MG in 0.9 % Sodium Chloride 100 ML IVPB SCH (16:14)
[2021-07-08] MEDS ORDERED: Saline Nasal Spray 44 ML BOTTLE NS PRN (16:16)
[2021-07-08] MEDS: Melatonin 3 MG TABLET PO PRN (20:03)
[2021-07-08] MEDS ORDERED: Insulin DETEMIR 100 UNIT/ML X5UNITS SUBQ SCH (21:00)
[2021-07-09 02:54] LABS: Hematocrit 39.9 % (35.3-44.9); Hemoglobin 13.5 g/dL (11.5-15.4); Mean Corpuscular HGB Conc 33.8 g/dL (31.6-35.5); Mean Corpuscular Hemoglobin 30.2 pg (28.0-33.3); Mean Corpuscular Volume 89.3 fL (83.0-100.0); Mean Platelet Volume 11.6 fL (9.4-12.4); Platelet Count 331 K/mcL (140-400); Red Blood Count 4.47 M/mcL (3.82-4.97); Red Cell Distribution Width 12.7 % (11.5-14.5); White Blood Count 12.6 K/mcL (4.3-11.1)
[2021-07-09 03:09] LABS: BUN/Creatinine Ratio 57 (6-26); Blood Urea Nitrogen 59 mg/dL (8-23); Calcium 8.5 mg/dL (8.6-10.3); Carbon Dioxide 17 mEq/L (23-29); Chloride 105 mEq/L (98-107); Glucose 172 mg/dL (70-105); Osmolality,Calculated 303 (280-300); Potassium 3.1 mEq/L (3.5-5.1); Sodium 136 mEq/L (136-145); eGFR For African Americans > 60 (> 60); eGFR For Non-African Americans 53 (> 60)
[2021-07-09 03:37] LABS: Albumin 3.2 g/dL (3.5-5.7); Albumin/Globulin Ratio 1.1 (1.1-2.2); Bilirubin,Direct 0.2 mg/dL (0.0-0.2); Bilirubin,Indirect 0.6 mg/dL (0.0-1.0); Bilirubin,Total 0.8 mg/dL (0.3-1.0); Globulin 2.8 g/dL (2.4-3.5)
[2021-07-09] MEDS: Apixaban 5 MG TABLET PO SCH (07:34)
[2021-07-09] MEDS: Metoprolol XL (24 HR) Succ 25 MG TAB.ER.24H PO SCH ×2 (07:34→19:41)
[2021-07-09] MEDS: Aspirin Enteric Coated 81 MG Tablet PO SCH (07:35)
[2021-07-09] MEDS: Insulin LISPRO 300 UNITS/3 ML VIAL SUBQ SCH ×3 (07:35→16:49)
[2021-07-09] MEDS: Cholecalciferol (D-3) 1,000 UNIT (25MCG) TABLET PO SCH (07:36)
[2021-07-09 13:00] LABS: INR 2.4; Prothrombin Time 26.8 Seconds (9.4-12.1)
[2021-07-09] MEDS: Remdesivir 100 MG in 0.9 % Sodium Chloride 100 ML IVPB SCH (15:51)
[2021-07-09] MEDS: *HR* Enoxaparin 100 MG/ML SYRINGE SQ SCH (17:02)
[2021-07-09] MEDS ORDERED: Warfarin perPT PO PRN (18:00)
[2021-07-09] MEDS ORDERED: *HR* Warfarin 2.5 MG TABLET PO ONE (18:00)
[2021-07-09] MEDS: Insulin DETEMIR 100 UNIT/ML X5UNITS SUBQ SCH (19:48)
[2021-07-10 03:04] LABS: Hematocrit 38.4 % (35.3-44.9); Hemoglobin 12.9 g/dL (11.5-15.4); Mean Corpuscular HGB Conc 33.6 g/dL (31.6-35.5); Mean Corpuscular Hemoglobin 30.1 pg (28.0-33.3); Mean Corpuscular Volume 89.5 fL (83.0-100.0); Mean Platelet Volume 11.6 fL (9.4-12.4); Platelet Count 292 K/mcL (140-400); Red Blood Count 4.29 M/mcL (3.82-4.97); Red Cell Distribution Width 12.7 % (11.5-14.5); White Blood Count 8.9 K/mcL (4.3-11.1)
[2021-07-10 03:15] LABS: Albumin/Globulin Ratio 1.1 (1.1-2.2); Bilirubin,Direct 0.3 mg/dL (0.0-0.2); Bilirubin,Indirect 0.6 mg/dL (0.0-1.0); Bilirubin,Total 0.9 mg/dL (0.3-1.0); Globulin 2.8 g/dL (2.4-3.5); Total Protein 5.8 g/dL (6.4-8.9)
[2021-07-10 03:23] LABS: Prothrombin Time 21.8 Seconds (9.4-12.1)
[2021-07-10 03:38] LABS: BUN/Creatinine Ratio 52 (6-26); Blood Urea Nitrogen 41 mg/dL (8-23); C-Reactive Protein 26 mg/L (Less than 10); Calcium 8.3 mg/dL (8.6-10.3); Carbon Dioxide 20 mEq/L (23-29); Chloride 109 mEq/L (98-107); Glucose 128 mg/dL (70-105); Lactate Dehydrogenase 262 Units/L (140-271); Magnesium 1.6 mg/dL (1.6-2.6); Osmolality,Calculated 300 (280-300); Phosphorous 2.9 mg/dL (2.7-4.5); Potassium 3.2 mEq/L (3.5-5.1); Sodium 139 mEq/L (136-145); eGFR For African Americans > 60 (> 60); eGFR For Non-African Americans > 60 (> 60)
[2021-07-10 05:42] LABS: Ferritin 404 ng/mL (10-120)
[2021-07-10] MEDS: *HR* Enoxaparin 100 MG/ML SYRINGE SQ SCH (06:20)
[2021-07-10] MEDS: Insulin LISPRO 300 UNITS/3 ML VIAL SUBQ SCH ×3 (07:32→16:22)
[2021-07-10] MEDS: Aspirin Enteric Coated 81 MG Tablet PO SCH (07:43)
[2021-07-10] MEDS: Metoprolol XL (24 HR) Succ 25 MG TAB.ER.24H PO SCH ×2 (07:43→21:27)
[2021-07-10] MEDS: Cholecalciferol (D-3) 1,000 UNIT (25MCG) TABLET PO SCH (07:43)
[2021-07-10] MEDS: Remdesivir 100 MG in 0.9 % Sodium Chloride 100 ML IVPB SCH (16:09)
[2021-07-10] MEDS: Insulin DETEMIR 100 UNIT/ML X5UNITS SUBQ SCH (21:26)
[2021-07-11] MEDS: Aspirin Enteric Coated 81 MG Tablet PO SCH (07:46)
[2021-07-11] MEDS: Metoprolol XL (24 HR) Succ 25 MG TAB.ER.24H PO SCH ×2 (07:47→19:31)
[2021-07-11] MEDS: Cholecalciferol (D-3) 1,000 UNIT (25MCG) TABLET PO SCH (07:47)
[2021-07-11] MEDS: Insulin LISPRO 300 UNITS/3 ML VIAL SUBQ SCH ×3 (07:48→16:49)
[2021-07-11 13:35] LABS: Hematocrit 37.1 % (35.3-44.9); Hemoglobin 12.8 g/dL (11.5-15.4); Mean Corpuscular HGB Conc 34.5 g/dL (31.6-35.5); Mean Corpuscular Hemoglobin 30.8 pg (28.0-33.3); Mean Corpuscular Volume 89.4 fL (83.0-100.0); Mean Platelet Volume 11.6 fL (9.4-12.4); Platelet Count 318 K/mcL (140-400); Red Blood Count 4.15 M/mcL (3.82-4.97); Red Cell Distribution Width 12.9 % (11.5-14.5); White Blood Count 9.2 K/mcL (4.3-11.1)
[2021-07-11 13:45] LABS: Prothrombin Time 22.7 Seconds (9.4-12.1)
[2021-07-11 13:56] LABS: Alanine Aminotransferase 21 Units/L (7-52); Albumin/Globulin Ratio 1.1 (1.1-2.2); Alkaline Phosphatase 61 Units/L (34-104); Aspartate Amino Transferase 21 Units/L (13-39); BUN/Creatinine Ratio 38 (6-26); Bilirubin,Direct 0.5 mg/dL (0.0-0.2); Bilirubin,Indirect 0.7 mg/dL (0.0-1.0); Bilirubin,Total 1.2 mg/dL (0.3-1.0); Blood Urea Nitrogen 28 mg/dL (8-23); C-Reactive Protein 32 mg/L (Less than 10); Calcium 8.2 mg/dL (8.6-10.3); Carbon Dioxide 19 mEq/L (23-29); Chloride 109 mEq/L (98-107); Globulin 2.7 g/dL (2.4-3.5); Glucose 229 mg/dL (70-105); Magnesium 1.6 mg/dL (1.6-2.6); Osmolality,Calculated 297 (280-300); Phosphorous 2.9 mg/dL (2.7-4.5); Potassium 3.9 mEq/L (3.5-5.1); Sodium 137 mEq/L (136-145); Total Protein 5.7 g/dL (6.4-8.9); eGFR For African Americans > 60 (> 60); eGFR For Non-African Americans > 60 (> 60)
[2021-07-11 14:14] LABS: Ferritin 356 ng/mL (10-120)
[2021-07-11] MEDS: Remdesivir 100 MG in 0.9 % Sodium Chloride 100 ML IVPB SCH (16:48)
[2021-07-11] MEDS ORDERED: *HR* Warfarin 2.5 MG TABLET PO ONE (18:00)
[2021-07-11] MEDS: Insulin DETEMIR 100 UNIT/ML X5UNITS SUBQ SCH (19:58)
[2021-07-12 05:42] LABS: Hematocrit 42.5 % (35.3-44.9); Hemoglobin 13.9 g/dL (11.5-15.4); Mean Corpuscular HGB Conc 32.7 g/dL (31.6-35.5); Mean Corpuscular Hemoglobin 29.1 pg (28.0-33.3); Mean Corpuscular Volume 88.9 fL (83.0-100.0); Mean Platelet Volume 11.6 fL (9.4-12.4); Platelet Count 204 K/mcL (140-400); Red Blood Count 4.78 M/mcL (3.82-4.97); Red Cell Distribution Width 14.1 % (11.5-14.5); White Blood Count 6.9 K/mcL (4.3-11.1)
[2021-07-12 05:49] LABS: INR 1.1; Prothrombin Time 11.8 Seconds (9.4-12.1)
[2021-07-12] MEDS: Insulin LISPRO 300 UNITS/3 ML VIAL SUBQ SCH ×3 (07:23→16:47)
[2021-07-12] MEDS: Metoprolol XL (24 HR) Succ 25 MG TAB.ER.24H PO SCH ×2 (10:05→20:07)
[2021-07-12] MEDS: Aspirin Enteric Coated 81 MG Tablet PO SCH (10:05)
[2021-07-12] MEDS: Cholecalciferol (D-3) 1,000 UNIT (25MCG) TABLET PO SCH (10:05)
[2021-07-12 13:02] LABS: Alanine Aminotransferase 58 Units/L (7-52); Albumin/Globulin Ratio 1.4 (1.1-2.2); Alkaline Phosphatase 58 Units/L (34-104); Aspartate Amino Transferase 50 Units/L (13-39); BUN/Creatinine Ratio 13 (6-26); Bilirubin,Direct 0.2 mg/dL (0.0-0.2); Bilirubin,Indirect 0.5 mg/dL (0.0-1.0); Bilirubin,Total 0.7 mg/dL (0.3-1.0); Blood Urea Nitrogen 10 mg/dL (8-23); Calcium 9.5 mg/dL (8.6-10.3); Carbon Dioxide 25 mEq/L (23-29); Chloride 105 mEq/L (98-107); Globulin 2.8 g/dL (2.4-3.5); Glucose 86 mg/dL (70-105); Lactate Dehydrogenase 164 Units/L (140-271); Osmolality,Calculated 286 (280-300); Potassium 3.5 mEq/L (3.5-5.1); Sodium 139 mEq/L (136-145); Total Protein 6.8 g/dL (6.4-8.9); eGFR For African Americans > 60 (> 60); eGFR For Non-African Americans > 60 (> 60)
[2021-07-12 13:49] LABS: C-Reactive Protein < 5 mg/L (Less than 10)
[2021-07-12] MEDS ORDERED: *HR* Warfarin 2.5 MG TABLET PO ONE (18:00)
[2021-07-12] MEDS ORDERED: Insulin DETEMIR 100 UNIT/ML X5UNITS SUBQ SCH (21:00)
[2021-07-13 06:42] LABS: INR 2.4; Prothrombin Time 26.9 Seconds (9.4-12.1)
[2021-07-13] MEDS: Insulin LISPRO 300 UNITS/3 ML VIAL SUBQ SCH ×2 (07:57→12:36)
[2021-07-13] MEDS: Cholecalciferol (D-3) 1,000 UNIT (25MCG) TABLET PO SCH (08:41)
[2021-07-13] MEDS: Aspirin Enteric Coated 81 MG Tablet PO SCH (08:41)
[2021-07-13] MEDS: Metoprolol XL (24 HR) Succ 25 MG TAB.ER.24H PO SCH (08:41)
[2021-07-13] MEDS ORDERED: Dexamethasone Sodium Phos/PF 10 MG/ML VIAL IVP SCH (09:00)
[2021-07-13 14:08] LABS: INR 2.9; Prothrombin Time 31.7 Seconds (9.4-12.1)
[2021-07-13 15:23] VITALS: BP 121/92; PULSE 105; TEMP 98.2; O2SAT 99
[2021-07-13] MEDS ORDERED: *HR* Warfarin 1 MG TABLET PO ONE (18:00)
== END 2021-07-13 17:12 | disposition home or self-care (01) | DRG 177 ==
LOC: 2NENU 15:24 → SUATTDRO 15:24
PROVIDERS: ADMIT Internal Medicine; ATTEND Internal Medicine